=== PATIENT | male | born 1980 | race Caucasian/White ===

== ENCOUNTER 2017-03-29 18:40 | Emergency (ER) | payer OTHER ==
[~2017-03-29] VITALS: Ht 182.9 cm; Wt 100.0 kg
[~2017-03-29 18:40] MED LIST: NORC7.5T PO; XARE10TA PO
[2017-03-29 18:41] VITALS: BP 147/80; PULSE 88; RESP 18; TEMP 98; O2SAT 97
--- NOTE | 2017-03-29 19:14 | PD ---
HPI Chief Complaint: Numbness/Tingling Time Seen by Provider: 18:56 Travel History International Travel<30 days: No Contact w/Intl Traveler<30days: No Traveled to known affect area: No History of Present Illness HPI 36yo M with no PMH presents to the ED with c/o sensation of pins and needles in right foot up to the ankle for 3 weeks. Said that working makes it worst. Also with cramping and tingling for the last 4-5 nights in bilateral hands and only happen at night but now it is fine. Denies any fever, chest pain, sob, n/v , abdominal pain, focal weakness, visual changes or trauma. PFSH Past Medical History Diminished Hearing: No Social History Alcohol Use: Yes (DAILY) Tobacco Use: Yes ( DAY) Substance Use: Yes (CURRENT LABS SHOW POLYSUB) Allergies-Medications (Allergen,Severity, Reaction): Coded Allergies: No Known Allergies (Unverified Adverse Reaction, Unknown, 03/29/17) Reported Meds & Prescriptions Reported Meds & Active Scripts Active No Active Prescriptions or Reported Medications Review of Systems Except as stated in HPI: all other systems reviewed are Neg Physical Exam Narrative GENERAL: 36yo M not in distress. SKIN: Focused skin assessment warm/dry. HEAD: Atraumatic. Normocephalic. EYES: Pupils equal and round. No scleral icterus. No injection or drainage. ENT: No nasal bleeding or discharge. Mucous membranes pink and moist. NECK: Trachea midline. No JVD. CARDIOVASCULAR: Regular rate and rhythm. No murmur appreciated. RESPIRATORY: No accessory muscle use. Clear to auscultation. Breath sounds equal bilaterally. GASTROINTESTINAL: Abdomen soft, non-tender, nondistended. MUSCULOSKELETAL: No obvious deformities. No clubbing. No cyanosis. No edema. NEUROLOGICAL: Awake and alert. No obvious cranial nerve deficits. Motor grossly within normal limits in all extremities. Normal speech. Pt has good sensation in right foot for sharp and dull objects but said he just has a constant pins and needle sensation. PSYCHIATRIC: Appropriate mood and affect; insight and judgment normal. Data Data Last Documented VS Vital Signs Date Time Temp Pulse Resp B/P (MAP) Pulse Ox O2 Delivery O2 Flow Rate FiO2 03/29/17 19:09 14 98 Room Air 03/29/17 18:41 98.0 88 147/80 (102) Orders Orders Basic Metabolic Panel (Bmp) (03/29/17 19:07) Magnesium (Mg) (03/29/17 19:07) Labs Laboratory Tests Test 03/29/17 19:05 Blood Urea Nitrogen 22 MG/DL Creatinine 1.06 MG/DL Random Glucose 85 MG/DL Calcium Level 9.1 MG/DL Magnesium Level 2.2 MG/DL Sodium Level 137 MEQ/L Potassium Level 3.7 MEQ/L Chloride Level 104 MEQ/L Carbon Dioxide Level 25.8 MEQ/L Anion Gap 7 MEQ/L Estimat Glomerular Filtration Rate 78 ML/MIN MDM Medical Decision Making Medical Screen Exam Complete: Yes Emergency Medical Condition: Yes Differential Diagnosis Peripheral neuropathy vs. hypokalemia vs. dehydration vs. electrolyte abnormality Narrative Course 36yo M with c/o pins and needles in right foot for 3 weeks. Pt said it does not really hurt and does not want any pain medication. Labs reviewed, normal electrolytes. Pt is well appearing. Will have pt follow up with primary care physician as outpatient. Return precautions given. Diagnosis Primary Impression: Numbness and tingling Patient Instructions: General Instructions Departure Forms: Tests/Procedures Additional Instructions: Please follow up with your primary care physician. Return to the ED if symptoms worsen. Med/Other Pt SpecificInfo: No Change to Meds Scripts No Active Prescriptions or Reported Meds Disposition: 01 DISCHARGE HOME Condition: Stable MayankLuz DO Mar 29, 2017 19:14
[2017-03-29 20:16] LABS: BICARBONATE 25.8 MEQ/L (21.0-32.0); MAGNESIUM 2.2 MG/DL (1.5-2.5); POTASSIUM 3.7 MEQ/L (3.5-5.1)
== END 2017-03-29 21:33 | disposition home or self-care (01) ==
LOC: NEPD 18:40
DX: R20.0 Anesthesia of skin (principal); R20.2 Paresthesia of skin
CPT/HCPCS: 80048; 83735; 99283